=== PATIENT | female | born 1960 | race Two or more races ===

== ENCOUNTER 2023-09-20 13:48 | Outpatient (AMB) | payer OTHER, SELFPAY ==
--- NOTE | 2023-09-20 13:57 | HO.NEPHOV_ITS ---
HPI HPI Comments History of Present Illness Details I had the privilege of seeing Janell in follow-up of her chronic kidney disease. She does not have any dizziness anymore. Her blood pressure has been at goal. She denies any chest pain, shortness of breath, proximal nocturnal dyspnea, orthopnea, pedal edema or urinary symptoms. She is compliant with her medications. She does not take any excessive nonsteroidal anti- inflammatories. She has not had any hospitalizations or medication changes lately. She has history of microscopic hematuria intermittently. She feels well. [facility] Medical History (Updated 09/25/23 @ 11:31 by Jozef Nassar MD) Hypertension Chronic kidney disease, stage 3a Surgical History (Updated 09/20/23 @ 14:04 by Cate Barbosa MA) History of hysterectomy H/O section History of arthroscopic knee surgery Family History (Updated 09/20/23 @ 14:05 by Cate Barbosa MA) Sister Diabetes Social History (Updated 09/20/23 @ 14:05 by Cate Barbosa MA) Alcohol intake: never Patient Tobacco Use Status: Current everyday Tobacco user Vital Signs 09/20/23 13:59 Height 5 ft 1 in Weight 153 lb 2 oz BMI 28.9 BP 110/64 Blood Pressure Location Lt brachial Position Sitting Pulse 83 Pulse Source Pulse Oximeter Pulse Oximetry (%) 97 Oxygen Delivery Method Room Air Physical Exam Vital Signs: Last Vital Signs Pulse 83 09/20/23 13:59 BP 110/64 09/20/23 13:59 Pulse Ox 97 09/20/23 13:59 Oxygen Delivery Method Room Air 09/20/23 13:59 BMI result Body Mass Index 28.9 Const General: comfortable and no acute distress Orientation/consciousness: patient oriented x3 HEENT Head: Yes normocephalic Mouth: Normal oral and palatal mucosa present Eyes EOM: EOMs intact bilaterally Neck Neck: Yes supple Resp Auscultation: clear to auscultation bilaterally Cardio Jugular venous distension: no JVD Rate: regular rate GI Palpation (GI): Soft to palpation Auscultation: normal bowel sounds General: Yes no CVA tenderness Back/Spine/Pelvis Back: no CVA tenderness Skin General skin exam: no rashes or lesions noted Neuro General: patient oriented x3 and moves all extremities Extrem General: Yes no pedal edema Assessment & Plan Assessment & Plan (1) Hematuria: Code(s): R31.9 - Hematuria, unspecified Qualifiers: Hematuria type: unspecified type Qualified Code(s): R31.9 - Hematuria, unspecified (2) Chronic kidney disease, stage 3a: Code(s): N18.31 - Chronic kidney disease, stage 3a (3) Hypertension: Code(s): I10 - Essential (primary) hypertension Qualifiers: Hypertension type: primary hypertension Qualified Code(s): I10 - Essential (primary) hypertension Plan Her renal functions have been stable. I have ordered renal ultrasound as well as blood work and urine studies. I also referred her to see a urologist for getting a cystoscopy given her age. She had mild loss in GFR due to unknown etiology in the past. She never had proteinuria. She has no hearing deficit. She avoids nonsteroidal anti-inflammatories. She was encouraged to maintain good hydration. I did not make any other medication changes today. Follow-up appointment given. Answered all questions. Orders: Orders US renal BI 09/20/23 I10 - Essential (primary) hypertension, N18.31 - Chronic kidney disease, stage 3a, R31.9 - Hematuria, unspecified Blood Urea Nitrogen 09/20/23 I10 - Essential (primary) hypertension, N18.31 - C hronic kidney disease, stage 3a, R31.9 - Hematuria, unspecified Electrolytes 09/20/23 I10 - Essential (primary) hypertension, N18.31 - Chronic kidney disease, stage 3a, R31.9 - Hematuria, unspecified Calcium 09/20/23 I10 - Essential (primary) hypertension, N18.31 - Chronic kidney disease, stage 3a, R31.9 - Hematuria, unspecified Complement C4 09/20/23 I10 - Essential (primary) hypertension, N18.31 - Chronic kidney disease, stage 3a, R31.9 - Hematuria, unspecified Creatinine 09/20/23 I10 - Essential (primary) hypertension, N18.31 - Chronic kidney disease, stage 3a, R31.9 - Hematuria, unspecified Protein Creatinine Ratio, Ur 09/20/23 I10 - Essential (primary) hypertension, N18.31 - Chronic kidney disease, stage 3a, R31.9 - Hematuria, unspecified Complement C3 09/20/23 I10 - Essential (primary) hypertension, N18.31 - Chronic kidney disease, stage 3a, R31.9 - Hematuria, unspecified Referrals Urology Referral R31.9 - Hematuria, unspecified Coding Level of Care Code Est Pt Level 4 (26792) Diagnoses Hematuria, unspecified type R31.9 Hematuria type: unspecified type Chronic kidney disease, stage 3a N18.31 Primary hypertension I10 Hypertension type: primary hypertension Results Reviewed Nephrology Results: No Data to Display
[2023-09-20 13:59] VITALS: BP 110/64; PULSE 83; O2SAT 97; BMI 28.9
== END 2023-09-20 14:21 | disposition home or self-care (01) ==
PROVIDERS: PCP Internal Medicine; Visit Provider Internal Medicine Nephrology
DX: R31.9 Hematuria, unspecified (principal); N18.31 Chronic kidney disease, stage 3a; I10 Essential (primary) hypertension
CPT/HCPCS: 99214

== ENCOUNTER → 2023-09-20 13:48 | Outpatient (BNVA) | payer OTHER, SELFPAY | PROVIDERS: PCP Internal Medicine; Visit Provider Internal Medicine Nephrology | DX: I12.9 Hypertensive chronic kidney disease with stage 1 through stage 4 chronic kidney disease, or unspecified chronic kidney disease (principal); N18.31 Chronic kidney disease, stage 3a; R31.9 Hematuria, unspecified | CPT/HCPCS: 99212 ==

== ENCOUNTER 2023-10-03 12:12 | Outpatient (REF) | payer OTHER, SELFPAY ==
--- NOTE | ~2023-10-03 | US_ITS ---
EXAMINATION: US RETROPERITONEAL LIMITED (RENAL ONLY) CLINICAL INFORMATION: Hematuria. COMPARISON: None available. TECHNIQUE: Routine retroperitoneal imaging of kidneys is performed. FINDINGS: RIGHT KIDNEY: 8.1 x 3.3 x 4.8 cm (SAG x AP x TRV). The kidney is normal in size, contour, and echogenicity. Renal cortical thickness is normal. No calculi or focal parenchymal lesions. No hydronephrosis. LEFT KIDNEY: 8.9 x 4.6 x 4.0 cm (SAG x AP x TRV). The kidney is normal in size, contour, and echogenicity. Renal cortical thickness is normal. No calculi or focal parenchymal lesions. No hydronephrosis. US/US renal BI IMPRESSION: Unremarkable renal ultrasound.
== END 2023-10-03 12:13 | disposition home or self-care (01) ==
LOC: HO.US 12:12
PROVIDERS: PCP Internal Medicine; Visit Provider Internal Medicine Nephrology
DX: R31.9 Hematuria, unspecified (principal); I12.9 Hypertensive chronic kidney disease with stage 1 through stage 4 chronic kidney disease, or unspecified chronic kidney disease; N18.31 Chronic kidney disease, stage 3a
CPT/HCPCS: 76775

== ENCOUNTER 2023-11-09 13:47 | Outpatient (REF) | payer OTHER, SELFPAY ==
[2023-11-09 17:37] LABS: Urine Cytology See Pathology rpt
== END 2023-11-09 13:48 | disposition home or self-care (01) ==
LOC: HO.LNP 13:47
PROVIDERS: PCP Internal Medicine; Visit Provider Nurse Practitioner Family
DX: R31.29 Other microscopic hematuria (principal)
CPT/HCPCS: 81003; 88112; 99202

== ENCOUNTER 2023-11-09 13:47 | Outpatient (AMB) | payer OTHER, SELFPAY ==
--- NOTE | 2023-11-09 14:01 | A.OFFVIS_ITS ---
Intake Visit Reasons: gross hematuria/ possible cysto Intake Note: New Patient presents for initial visit for Gross Hematuria Urology Medications: none Blood Thinner: none Smoker: yes, since 14 years old Coffee Supervisor Required: No Accompanied by: Self / Same As Patient Allergies escitalopram [From Lexapro] Allergy (Verified 11/10/23 14:19) Unknown acetaminophen [From Percocet] Adverse Reaction (Verified 11/10/23 14:19) Vomiting hydrocodone [From Vicodin] Adverse Reaction (Verified 11/10/23 14:19) Vomiting oxycodone [From Percocet] Adverse Reaction (Verified 11/10/23 14:19) Vomiting Medication List - Last Reconciled 11/10/23 by OSVALDO Marcano atorvastatin 20 mg PO DAILY bupropion HCl XL 300 mg PO DAILY clonidine HCl mg PO BID docusate sodium 100 mg PO BID nicotine 1 patch topical DAILY omeprazole 20 mg PO DAILY plecanatide (Trulance) 3 mg PO DAILY quetiapine mg PO quetiapine 400 mg PO BEDTIME tramadol 50 mg PO BID PRN HPI Comments Details: Janell is a very pleasant 63-year-old female patient of Dr. Junior. She has a past medical history of hypertension and chronic kidney disease. She presents to the office today as a new patient for microscopic hematuria. In discussion with the patient today she reports having followed up with Nephrology at which time recommendations were made for urology referral due to ongoing microscopic hematuria in the setting of nicotine dependence. Patient reports a smoking history of approximately 50 years. She reports smoking approximately 1 pack of cigarettes per day however has recently decreased over the last few months to 7-10 cigarettes daily. She otherwise denies any bothersome urinary issues or concerns. Discussed at length potential causes of microscopic hematuria. Discussed reasons for blood in the urine may include but are not limited to kidney stones, cancer in the urinary tract, kidney stone disease or inflammatory conditions of the urinary tract. I have discussed workup to include cystoscopy evaluation. In office urinalysis results reviewed with the patient today. When asked she denies urinary urgency, urinary frequency, incontinence, nocturia, hematuria, dysuria, changes to urinary stream, flank pain, fever, and or chills. She does report noting foul-smelling urine at times however relates this to her decreased consumption of water or fluids. [facility] Medical History Hypertension Chronic kidney disease, stage 3a Surgical History History of hysterectomy H/O section History of arthroscopic knee surgery Family History Sister Diabetes Social History Alcohol intake: never Patient Tobacco Use Status: Current everyday Tobacco user Review of Systems Const Reports no additional complaints Eyes Reports no additional complaints ENT Reports no additional complaints Card Reports as per HPI Resp Reports no additional complaints GI Reports no additional complaints Reports as per HPI Musc Reports no additional complaints Neuro Reports no additional complaints Psych Reports no additional complaints Endo Reports no additional complaints Iam/Lymph Reports no additional complaints Aller/Immun Reports no additional complaints Physical Exam Const General: cooperative, comfortable, no acute distress, well developed, alert and awake Orientation/consciousness: patient oriented x3 HEENT Head: Yes normal to inspection, Yes normocephalic and Yes atraumatic Ears: hearing grossly normal bilaterally Eyes General: appearance normal, both eyes and all related structures Neck Neck: Yes normal visual inspection and Yes trachea midline Chest Chest palpation & inspection: normal inspection of the chest Resp Effort & Inspection: normal respiratory effort and able to speak in complete sentences Cardio Rate: regular rate GI Inspection: Yes normal to inspection General: Yes no CVA tenderness Back/Spine/Pelvis Back: no CVA tenderness Skin General skin exam: no rashes or lesions noted Neuro General: patient oriented x3 Extrem General: Yes normal to inspection Psych Appearance: grossly normal and well kempt Mental Status: mental status grossly normal Speech and movement: Normal speech and movement present and Clear speech present Affect: normal affect Attitude: cooperative Thought process: Normal thought process present Thought content: Normal thought content present Insight: Fair insight present (Psych) Judgement: Fair judgement present (Psych) Results AMB Urinalysis, Automated UA Leukoctes 0 Ana/uL Last Edit by Heriberto An on 11/09/23 14:36 UA Nitrite Negative Last Edit by Heriberto An on 11/09/23 14:36 UA Urobilinogen 0.2 mg/dL Last Edit by Heriberto An on 11/09/23 14:36 UA Protein 15 mg/dL Last Edit by Heriberto An on 11/09/23 14:36 UA pH 6.0 Last Edit by Heriberto An on 11/09/23 14:36 UA Blood 25 Bobby/uL Last Edit by Heriberto An on 11/09/23 14:36 UA Specific [place] 1.020 Last Edit by Heriberto An on 11/09/23 14:36 UA Ketone Negative Last Edit by Heriberto An on 11/09/23 14:36 UA Bilirubin 0 mg/dL Last Edit by Heriberto An on 11/09/23 14:36 UA Glucose 0 mg/dL Last Edit by Heriberto An on 11/09/23 14:36 Results Reviewed Results Reviewed: Laboratory Last Values Urine pH (Auto) 6.0 11/09/23 14:04 Specific [place] (Auto) 1.020 11/09/23 14:04 Urine Protein (Auto) 15 mg/dL 11/09/23 14:04 Glucose (UA)(Auto) 0 mg/dL 11/09/23 14:04 Urine Ketones (Auto) Negative 11/09/23 14:04 Urine Blood (Auto) 25 Bobby/uL 11/09/23 14:04 Urine Nitrite (Auto) Negative 11/09/23 14:04 Urine Bilirubin (Auto) 0 mg/dL 11/09/23 14:04 Urine Urobilinogen (Auto) 0.2 mg/dL 11/09/23 14:04 Leukocyte Esterase (Auto) 0 Ana/uL 11/09/23 14:04 Assessment & Plan Assessment & Plan (1) Microscopic hematuria: Code(s): R31.29 - Other microscopic hematuria Category: Medical (2) Foul smelling urine: Code(s): R82.90 - Unspecified abnormal findings in urine Category: Medical (3) Nicotine dependence: Code(s): F17.200 - Nicotine dependence, unspecified, uncomplicated Category: Medical Plan In office urinalysis results reviewed with the patient today; as noted above; will send for urine cytology Discussed at length potential causes of microscopic hematuria. Discussed further treatment options with surveillance monitoring verses further workup to include CT urogram, urine cytology, and in office cystoscopy; risks and benefits of these treatment options were discussed. Will obtain CT urogram for further assessment evaluation. BUN and creatinine ordered for imaging. Discussed, educated, and stressed the importance of limiting/quitting nicotine dependence for overall health and well-being. Discussed, educated, and stressed the importance of drinking water daily. Patient reports be happy with current voiding parameters. Follow-up in office cystoscopy with imaging and labs to be completed prior; or sooner with any issues, concerns, and or questions. Orders: Orders Urine Cytology 11/09/23 R31.29 - Other microscopic hematuria AMB Urinalysis Automated 11/09/23 Z13.9 - Encounter for screening, unspecified Blood Urea Nitrogen 11/09/23 R31.29 - Other microscopic hematuria Creatinine 11/09/23 R31.29 - Other microscopic hematuria CT urogram 11/09/23 F17.200 - Nicotine dependence, unspecified, uncomplicated, R31.29 - Other microscopic hematuria Patient Instructions: The patient had an opportunity to ask questions regarding the treatment plan. A ll questions were answered. Physical exam, labs, and imaging were discussed and reviewed in detail. As well as risks, benefits, and discussion of treatment choices. No major barriers to understanding were identified. The patient expressed understanding and agreement with the above treatment plan. The patient was made aware they should contact our office by phone for worsening of their current condition, the appearance of new symptoms, or with any questions or concerns. Compliance is encouraged with any medications and follow up testing that is ordered. It is a privilege to be allowed the opportunity to participate in? your urological care.? Again, if you have any questions or concerns If you have any questions or concerns please do not hesitate to contact me. The office is [phone]. This note is constructed using voice recognition software. While every effort has been made to ensure accuracy enrollment manager errors may have been included. Yours sincerely, OSVALDO Marcano
== END 2023-11-09 14:44 | disposition home or self-care (01) ==
PROVIDERS: PCP Internal Medicine; Visit Provider Nurse Practitioner Family
DX: R31.29 Other microscopic hematuria (principal); R82.90 Unspecified abnormal findings in urine; F17.200 Nicotine dependence, unspecified, uncomplicated
CPT/HCPCS: 99203

== ENCOUNTER 2024-01-15 12:05 | Outpatient (REF) | payer OTHER, SELFPAY ==
[2024-01-15 18:30] LABS: Anion Gap 10 (12-20); Blood Urea Nitrogen 11 mg/dL (9-16); Calcium 9.5 mg/dL (8.4-10.2); Carbon Dioxide 27 mmol/L (22-29); Chloride 109 mmol/L (96-108); Estimated Glomerular Filt Rate 43; Potassium 4.2 mmol/L (3.3-5.1); Sodium 142 mmol/L (135-145)
[2024-01-15 18:49] LABS: Creatinine Urine 93.34 mg/dL; Total Protein Urine Random < 7 mg/dL (<12)
[2024-01-17 10:08] LABS: Complement C3 124 mg/dL (83-193)
== END 2024-01-15 12:06 | disposition home or self-care (01) ==
LOC: HO.HKASLDS 12:05
PROVIDERS: Visit Provider Internal Medicine Nephrology
DX: N18.31 Chronic kidney disease, stage 3a (principal); I10 Essential (primary) hypertension; R31.9 Hematuria, unspecified
CPT/HCPCS: 36415; 80051; 82310; 82565; 82570; 84156; 84520; 86160

== ENCOUNTER 2024-02-14 14:03 | Outpatient (AMB) | payer OTHER, SELFPAY ==
--- NOTE | 2024-02-14 14:27 | HO.NEPHOV_ITS ---
Vital Signs 02/14/24 14:28 Height 5 ft 1 in Weight 144 lb 2 oz BMI 27.2 BP 120/74 Blood Pressure Location Lt brachial Position Sitting Pulse 87 Pulse Source Pulse Oximeter Pulse Oximetry (%) 97 Oxygen Delivery Method Room Air Intake Visit Reasons: R/S 01/17/24/ Conf Cat And Dog Bather Required: No Accompanied by: Self / Same As Patient Allergies escitalopram [From Lexapro] Allergy (Verified 02/14/24 14:30) Unknown acetaminophen [From Percocet] Adverse Reaction (Verified 02/14/24 14:30) Vomiting hydrocodone [From Vicodin] Adverse Reaction (Verified 02/14/24 14:30) Vomiting oxycodone [From Percocet] Adverse Reaction (Verified 02/14/24 14:30) Vomiting HPI Comments Details: I had the privilege of seeing Janell in follow-up of her chronic kidney disease. She does not have any dizziness anymore while on Meclizine. Her blood pressure has been at goal. She denies any chest pain, shortness of breath, proximal nocturnal dyspnea, orthopnea, pedal edema or urinary symptoms. She is compliant with her medications. She does not take any excessive nonsteroidal anti-inflammatories. She has not had any hospitalizations or medication changes lately. She has history of microscopic hematuria intermittently. She feels well. [facility] Medical History Hypertension Chronic kidney disease, stage 3a Surgical History History of hysterectomy H/O section History of arthroscopic knee surgery Family History Sister Diabetes Social History Alcohol intake: never Patient Tobacco Use Status: Current everyday Tobacco user Physical Exam Vital Signs: Last Vital Signs Pulse 87 02/14/24 14:28 BP 120/74 02/14/24 14:28 Pulse Ox 97 02/14/24 14:28 Oxygen Delivery Method Room Air 02/14/24 14:28 BMI result Body Mass Index 27.2 Const General: comfortable and no acute distress Orientation/consciousness: patient oriented x3 HEENT Head: Yes normocephalic Mouth: Normal oral and palatal mucosa present Eyes EOM: EOMs intact bilaterally Neck Neck: Yes supple Resp Auscultation: clear to auscultation bilaterally Cardio Jugular venous distension: no JVD Rate: regular rate GI Palpation (GI): Soft to palpation Auscultation: normal bowel sounds General: Yes no CVA tenderness Back/Spine/Pelvis Back: no CVA tenderness Skin General skin exam: no rashes or lesions noted Neuro General: patient oriented x3 and moves all extremities Extrem General: Yes no pedal edema Results Reviewed Nephrology Results: Sodium 142 mmol/L (135-145) 01/15/24 Potassium 4.2 mmol/L (3.3-5.1) 01/15/24 Chloride 109 mmol/L (96-108) H 01/15/24 Carbon Dioxide 27 mmol/L (22-29) 01/15/24 BUN 11 mg/dL (9-16) 01/15/24 Creatinine 1.25 mg/dL (0.5-1.4) 01/15/24 Calcium 9.5 mg/dL (8.4-10.2) 01/15/24 Urine Creatinine 93.34 mg/dL 01/15/24 Protein/Creatinin Ratio TNP 01/15/24 Renal US 10/03/23 Assessment & Plan Assessment & Plan (1) Chronic kidney disease, stage 3a: Code(s): N18.31 - Chronic kidney disease, stage 3a Category: Medical (2) Hematuria: Code(s): R31.9 - Hematuria, unspecified Category: Medical Qualifiers: Hematuria type: unspecified type Qualified Code(s): R31.9 - Hematuria, unspecified Plan Her renal functions have been stable. His renal ultrasound was unremarkable. urine studies did not have any protein. She had mild loss in GFR due to unknown etiology in the past. She has no hearing deficit. She may be a candidate for low dose ACEI / Jardiance in the future. She avoids nonsteroidal anti- inflammatories. She was encouraged to maintain good hydration. I did not make any other medication changes today. Follow-up appointment given. Answered all questions. Orders: Orders Creatinine Today N18.31 - Chronic kidney disease, stage 3a, R31.9 - Hematuria, unspecified Blood Urea Nitrogen Today N18.31 - Chronic kidney disease, stage 3a, R31.9 - Hematuria, unspecified Electrolytes Today N18.31 - Chronic kidney disease, stage 3a, R31.9 - Hematuria, unspecified Calcium Today N18.31 - Chronic kidney disease, stage 3a, R31.9 - Hematuria, unspecified Protein Creatinine Ratio, Ur Today N18.31 - Chronic kidney disease, stage 3a, R31.9 - Hematuria, unspecified Coding Level of Care Code Est Pt Level 4 (23597) Diagnoses Chronic kidney disease, stage 3a N18.31 Hematuria, unspecified type R31.9 Hematuria type: unspecified type
[2024-02-14 14:28] VITALS: BP 120/74; PULSE 87; O2SAT 97; BMI 27.2
== END 2024-02-14 14:50 | disposition home or self-care (01) ==
PROVIDERS: PCP Internal Medicine; Visit Provider Internal Medicine Nephrology
DX: N18.31 Chronic kidney disease, stage 3a (principal); R31.9 Hematuria, unspecified
CPT/HCPCS: 99214

== ENCOUNTER → 2024-02-14 14:03 | Outpatient (BNVA) | payer OTHER, SELFPAY | PROVIDERS: PCP Internal Medicine; Visit Provider Internal Medicine Nephrology | DX: I12.9 Hypertensive chronic kidney disease with stage 1 through stage 4 chronic kidney disease, or unspecified chronic kidney disease (principal); N18.31 Chronic kidney disease, stage 3a; R31.9 Hematuria, unspecified | CPT/HCPCS: 99212 ==

== ENCOUNTER 2024-08-26 12:50 | Outpatient (REF) | payer OTHER, SELFPAY ==
[2024-08-26 18:26] LABS: Anion Gap 13 (12-20); Blood Urea Nitrogen 14 mg/dL (9-16); Calcium 8.9 mg/dL (8.4-10.2); Carbon Dioxide 27 mmol/L (22-29); Chloride 107 mmol/L (96-108); Estimated Glomerular Filt Rate 45; Potassium 4.1 mmol/L (3.3-5.1); Sodium 143 mmol/L (135-145)
[2024-08-26 18:34] LABS: Creatinine Urine 59.66 mg/dL; Total Protein Urine Random < 7 mg/dL (<12)
== END 2024-08-26 12:51 | disposition home or self-care (01) ==
LOC: HO.HKASLDS 12:50
PROVIDERS: Visit Provider Internal Medicine Nephrology
DX: N18.31 Chronic kidney disease, stage 3a (principal); R31.9 Hematuria, unspecified
CPT/HCPCS: 36415; 80051; 82310; 82565; 82570; 84156; 84520

== ENCOUNTER 2024-09-02 09:52 | Outpatient (AMB) | payer OTHER, SELFPAY ==
[2024-09-02 10:33] VITALS: BP 130/72; PULSE 78; O2SAT 97; BMI 27.5
--- NOTE | 2024-09-02 10:33 | HO.NEPHOV_ITS ---
Vital Signs 09/02/24 10:33 Height 5 ft 1 in Weight 145 lb 8 oz BMI 27.5 BP 130/72 Blood Pressure Location Lt brachial Position Sitting Pulse 78 Pulse Source Pulse Oximeter Pulse Oximetry (%) 97 Oxygen Delivery Method Room Air Intake Visit Reasons: 6 mon follow up/ Conf Type Casting Machine Operator Required: No Accompanied by: Self / Same As Patient Allergies escitalopram [From Lexapro] Allergy (Verified 09/02/24 10:33) Unknown acetaminophen [From Percocet] Adverse Reaction (Verified 09/02/24 10:33) Vomiting hydrocodone [From Vicodin] Adverse Reaction (Verified 09/02/24 10:33) Vomiting oxycodone [From Percocet] Adverse Reaction (Verified 09/02/24 10:) Vomiting HPI Comments Details: I had the privilege of seeing Janell in follow-up of her chronic kidney disease. Her blood pressure has been at goal. She denies any chest pain, shortness of breath, proximal nocturnal dyspnea, orthopnea, pedal edema or urinary symptoms. She is compliant with her medications. She does not take any excessive nonsteroidal anti-inflammatories. She has not had any hospitalizations or medication changes lately. She has history of microscopic hematuria intermittently. She feels well. [facility] Medical History Hypertension Chronic kidney disease, stage 3a Surgical History History of hysterectomy H/O section History of arthroscopic knee surgery Family History Sister Diabetes Social History Alcohol intake: never Patient Tobacco Use Status: Current everyday Tobacco user Review of Systems Const All systems reviewed & are unremarkable except as noted in HPI and below Physical Exam Vital Signs: Last Vital Signs Pulse 78 09/02/24 10:33 BP 130/72 09/02/24 10:33 Pulse Ox 97 09/02/24 10:33 Oxygen Delivery Method Room Air 09/02/24 10:33 BMI result Body Mass Index 27.5 Const General: comfortable and no acute distress Orientation/consciousness: patient oriented x3 HEENT Head: Yes normocephalic Mouth: Normal oral and palatal mucosa present Eyes EOM: EOMs intact bilaterally Neck Neck: Yes supple Resp Auscultation: clear to auscultation bilaterally Cardio Jugular venous distension: no JVD Rate: regular rate GI Palpation (GI): Soft to palpation Auscultation: normal bowel sounds General: Yes no CVA tenderness Back/Spine/Pelvis Back: no CVA tenderness Skin General skin exam: no rashes or lesions noted Neuro General: patient oriented x3 and moves all extremities Extrem General: Yes no pedal edema Results Reviewed Nephrology Results: Sodium 143 mmol/L (135-145) 08/26/24 Potassium 4.1 mmol/L (3.3-5.1) 08/26/24 Chloride 107 mmol/L (96-108) 08/26/24 Carbon Dioxide 27 mmol/L (22-29) 08/26/24 BUN 14 mg/dL (9-16) 08/26/24 Creatinine 1.20 mg/dL (0.5-1.4) 08/26/24 Calcium 8.9 mg/dL (8.4-10.2) 08/26/24 Urine Creatinine 59.66 mg/dL 08/26/24 Protein/Creatinin Ratio TNP 08/26/24 Renal US 10/03/23 Assessment & Plan Assessment & Plan (1) Microscopic hematuria: Code(s): R31.29 - Other microscopic hematuria Category: Medical (2) Chronic kidney disease, stage 3a: Code(s): N18.31 - Chronic kidney disease, stage 3a Category: Medical (3) Hypertension: Code(s): I10 - Essential (primary) hypertension Category: Medical Qualifiers: Hypertension type: primary hypertension Qualified Code(s): I10 - Essential (primary) hypertension Plan Her renal functions have been stable. Her renal ultrasound was unremarkable. urine studies did not have any protein. She had mild loss in GFR due to unknown etiology in the past. She has no hearing deficit. She may be a candidate for low dose ACEI / Jardiance in the future. She avoids nonsteroidal anti- inflammatories. She was encouraged to maintain good hydration. I did not make any other medication changes today. Follow-up appointment given. Answered all questions. Orders: Orders Blood Urea Nitrogen 6 Months I10 - Essential (primary) hypertension, N18.31 - Chronic kidney disease, stage 3a, R31.29 - Other microscopic hematuria Electrolytes 6 Months I10 - Essential (primary) hypertension, N18.31 - Chronic kidney disease, stage 3a, R31.29 - Other microscopic hematuria UA and rflx microscopic 6 Months I10 - Essential (primary) hypertension, N18.31 - Chronic kidney disease, stage 3a, R31.29 - Other microscopic hematuria Creatinine 6 Months I10 - Essential (primary) hypertension, N18.31 - Chronic kidney disease, stage 3a, R31.29 - Other microscopic hematuria Coding Level of Care Code Est Pt Level 4 (60430) Diagnoses Microscopic hematuria R31.29 Chronic kidney disease, stage 3a N18.31 Primary hypertension I10 Hypertension type: primary hypertension
== END 2024-09-03 08:53 | disposition home or self-care (01) ==
PROVIDERS: PCP Internal Medicine; Visit Provider Internal Medicine Nephrology
DX: R31.29 Other microscopic hematuria (principal); N18.31 Chronic kidney disease, stage 3a; I10 Essential (primary) hypertension
CPT/HCPCS: 99214

== ENCOUNTER → 2024-09-02 09:52 | Outpatient (BNVA) | payer OTHER, SELFPAY | PROVIDERS: PCP Internal Medicine; Visit Provider Internal Medicine Nephrology | DX: I12.9 Hypertensive chronic kidney disease with stage 1 through stage 4 chronic kidney disease, or unspecified chronic kidney disease (principal); N18.31 Chronic kidney disease, stage 3a; R31.29 Other microscopic hematuria | CPT/HCPCS: 99212 ==

== ENCOUNTER 2025-03-24 15:23 | Outpatient (AMB) | payer OTHER, SELFPAY ==
--- NOTE | 2025-03-24 15:30 | HO.NEPHOV_ITS ---
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 Her blood pressure has been at goal. She denies any chest pain, shortness of breath, proximal nocturnal dyspnea, orthopnea, pedal edema or urinary symptoms. She is compliant with her medications. She does not take any excessive nonsteroidal anti-inflammatories. She has not had any hospitalizations or medication changes lately. She has history of microscopic hematuria intermittently. She feels well [facility] Medical History Hypertension Chronic kidney disease, stage 3a Surgical History History of hysterectomy H/O section History of arthroscopic knee surgery Family History Sister Diabetes Social History Alcohol intake: never Patient Tobacco Use Status: Current everyday Tobacco user Review of Systems Const All systems reviewed & are unremarkable except as noted in HPI and below Physical Exam Const General: comfortable and no acute distress Orientation/consciousness: patient oriented x3 HEENT Head: Yes normocephalic Mouth: Normal oral and palatal mucosa present Eyes EOM: EOMs intact bilaterally Neck Neck: Yes supple Resp Auscultation: clear to auscultation bilaterally Cardio Jugular venous distension: no JVD Rate: regular rate GI Palpation (GI): Soft to palpation Auscultation: normal bowel sounds General: Yes no CVA tenderness Back/Spine/Pelvis Back: no CVA tenderness Skin General skin exam: no rashes or lesions noted Neuro General: patient oriented x3 and moves all extremities Extrem General: Yes no pedal edema Results Reviewed Nephrology Results: Sodium, (135-145) 143 mmol/L 08/26/24 Potassium, (3.3-5.1) 4.1 mmol/L 08/26/24 Chloride, (96-108) 107 mmol/L 08/26/24 Carbon Dioxide, (22-29) 27 mmol/L 08/26/24 BUN, (9-16) 14 mg/dL 08/26/24 Creatinine, (0.5-1.4) 1.20 mg/dL 08/26/24 Calcium, (8.4-10.2) 8.9 mg/dL Δ 08/26/24 Urine Creatinine 59.66 mg/dL 08/26/24 Protein/Creatinin Ratio TNP 08/26/24 Renal US 10/03/23 Assessment & Plan Assessment & Plan (1) Hypertension: Code(s): I10 - Essential (primary) hypertension Category: Medical Qualifiers: Hypertension type: primary hypertension Qualified Code(s): I10 - Essential (primary) hypertension (2) Chronic kidney disease, stage 3a: Code(s): N18.31 - Chronic kidney disease, stage 3a Category: Medical (3) Microscopic hematuria: Code(s): R31.29 - Other microscopic hematuria Category: Medical Plan Her renal functions have been stable. Her renal ultrasound was unremarkable. urine studies did not have any protein. She had mild loss in GFR due to unknown etiology in the past. She has no hearing deficit. She may be a candidate for low dose ACEI / Jardiance in the future. She avoids nonsteroidal anti- inflammatories. She was encouraged to maintain good hydration. I did not make any other medication changes today. Follow-up appointment given. Answered all questions. Orders: Orders Blood Urea Nitrogen 3 Months I10 - Essential (primary) hypertension, N18.31 - Chronic kidney disease, stage 3a, R31.29 - Other microscopic hematuria Creatinine 3 Months I10 - Essential (primary) hypertension, N18.31 - Chronic kidney disease, stage 3a, R31.29 - Other microscopic hematuria Electrolytes 3 Months I10 - Essential (primary) hypertension, N18.31 - Chronic kidney disease, stage 3a, R31.29 - Other microscopic hematuria Coding Level of Care Code Est Pt Level 4 (72274) Diagnoses Primary hypertension I10 Hypertension type: primary hypertension Chronic kidney disease, stage 3a N18.31 Microscopic hematuria R31.29
[2025-03-24 15:34] VITALS: BP 90/56; PULSE 70; O2SAT 98; BMI 26.1
--- OUTSIDE RECORDS SUMMARY | 2025-03-24 16:28 | XMS_ITS | Clinical Summary ---
Author Organization [facility] Address [address] [place] [phone] Phone Care Team Providers Care Adjustment Examiner Name Role Phone Physician, Pcp Unknown Primary Care Provider Janine vailable Allergies Active Allergy Reactions Criticality Noted Date Comments Oxycodone Nausea And Vomiting 01/24/2025 Hydrocodone-Acetaminophen Nausea And Vomiting 0 01/02/2025 Medications No known medications Active Problems No known active problems Encounters Date Type Department Care Team Description 01/24/2025 11:23 AM EDT - 01/24/2025 12:41 PM EDT Emergency [facility] Emergency [address] [place] [phone] Pain of right thumb (Primary Dx) Discharge Disposition: Home or Self Care 01/02/2025 1:49 PM EDT - 01/02/2025 3:01 PM EDT Emergency [facility] Emergency [address] [place] [phone] Pain (Primary Dx); Muscle strain of right thigh, initial encounter Discharge Disposition: Home or Self Care from Last 3 Months Surgical History Surgery Date Site/Laterality Comments OTHER SURGICAL HISTORY PROCEDURE: [place] TOTAL ABDOMINAL HYSTERECT W/WO RMVL TUBE OVARY KNEE ARTHROPLASTY PROCEDURE: [place] ARTHRS KNEE ABRASION ARTHRP/CLERICAL STOCK INSPECTOR DRLG/MICROFX; COMMENT: right Medical History Medical History Date Comments Hyperlipidemia 12/06/2016 DX:Hyperlipidemi a Family History Relation Name Status Comments Brother Alive Father Mother Alive Sister Alive Social History Tobacco Use Types Packs/Day Years Used Date Smoking Tobacco: Every Day Smokeless Tobacco: Never Alcohol Use Standard Drinks/Week Comments No 0 (1 standard drink = 0.6 oz pur e alcohol) Comments No Sex and Gender Information Value Date Recorded Sex Assigned at Not on file Legal Sex Female 6:14 AM EST Gender Identity Not on file Sexual Orientation Not on file Obstetrics History Last Filed Vital Signs Vital Sign Reading Time Taken Comments Blood Pressure 89/60 01/24/2025 10:25 AM EDT Pulse 88 01/24/2025 10:25 AM EDT Temperature 36.6 C (97.9 F) 01/24/2025 10:25 AM EDT Respiratory Rate 16 01/24/2025 10:25 AM EDT Oxygen Saturation 99% 01/24/2025 10:29 AM EDT Inhaled Oxygen Concentration - - Weight 62.6 kg (138 lb) 01/24/2025 10:25 AM EDT Height 154.9 cm (5' 1 ) 01/24/2025 10:25 AM EDT Body Mass Index 26.07 01/24/2025 10:25 AM EDT Plan of Treatment Health Maintenance Due Date Last Done Comments Breast Cancer Screening 1960 Pneumococcal Vaccine: 50+ Years (1 of 2 - PCV) 1977 Zoster Vaccines (1 of 2) 2008 Hepatitis B Vaccines (3 of 3 - 19+ 3-dose series) 09/26/2016 04/28/2016, 03/29/2016 Cholesterol Screening (Lipid Panel) 06/25/2022 Colorectal Cancer Screening: Colonoscopy 06/25/2022 Hepatitis C Screening 06/25/2022 Medicare Annual Wellness Visit 06/25/2022 Osteoporosis Screening (Bone Density Screening) 06/25/2022 Social Influencers of Health Screening 06/25/2022 Falls Risk Assessment 2023 Depression Screening 07/23/2024 Hypertension/CHF/CAD Annual BMP Blood Test 01/02/2025 COVID-19 Vaccine (3 - 2024-2 6 season) 2025 12/17/2020, 11/26/2020 Influenza Vaccine (#1) 2025 08/02/2018 DTaP,Tdap,and Td Vaccines (3 - Td or Tdap) 04/04/2026 04/04/2016, 07/23/2003 RSV Immunization Adult Patients (1 - 1-dose 75+ series) 2033 HIB Vaccines Aged Out No longer eligi ble based on patient's age to complete this topic HPV Vaccines Aged Out No longer eligi ble based on patient's age to complete this topic Hepatitis A Vaccines Aged Out No long er eligible based on patient's age to complete this topic IPV Vaccines Aged Out No longer eligi ble based on patient's age to complete this topic MMR Vaccines Aged Out No longer eligi ble based on patient's age to complete this topic Meningococcal ACWY Vaccine Aged Out N o longer eligible based on patient's age to complete this topic Meningococcal B Vaccine Aged Out No l onger eligible based on patient's age to complete this topic RSV Immunization Patients Under 20 months Aged Out No longer eligible b ased on patient's age to complete this topic Varicella Vaccines Aged Out No longer eligible based on patient's age to complete this topic Procedures Procedure Name Priority Date/Time Associated Diagnosis Comments XR FINGERS 2+ VIEWS RIGHT STAT 01/24/2025 10:55 AM EDT VAS US DUPLEX LOWER EXT VENOUS RIGHT STAT 01/02/2025 2:25 PM EDT Pain from Last 3 Months Results * XR Fingers 2+ Views Right (01/24/2025 10:55 AM EDT) Anatomical Region Laterality Modality Upper Extremities, Fingers Right Radio graphic Imaging 01/24/2025 11:1 4 AM EDT Impressions 01/24/2025 11:14 AM EDT FINDINGS/IMPRESSION: Soft tissue swelling of the 1st digit. Mild degenerative changes and osteopenia. No acute fracture. Normal alignment. -------- FINAL REPORT -------- Dictated By: Rogelio Connolly Dictated Date: 01/24/2025 11:14 ET Assigned Physician: Rogelio Connolly Reviewed and Electronically Signed By: Rogelio Connolly Signed Date: 01/24/2025 11:14 ET Workstation ID: [id number] Transcribed By: Self Edit Transcribed Date: 01/24/2025 11:14 ET Narrative 01/24/2025 11:14 AM EDT XR FINGERS 2+ VIEWS RIGHT INDICATION: pain swelling right thumb TECHNIQUE: XR FINGERS 2+ VIEWS RIGHT COMPARISON: No priors available. Procedure Note Rogelio Connolly MD - 01/24/2025 XR FINGERS 2+ VIEWS RIGHT INDICATION: pain swelling right thumb TECHNIQUE: XR FINGERS 2+ VIEWS RIGHT COMPARISON: No priors available. IMPRESSION: FINDINGS/IMPRESSION: Soft tissue swelling of the 1st digit. Milddegenerative changes and osteopenia. No acute fracture. Normalalignment. -------- FINAL REPORT -------- Dictated By: Rogelio Connolly Dictated Date: 01/24/2025 11:14 ET Assigned Physician: Rogelio Connolly Reviewed and Electronically Signed By: Rogelio Connolly Signed Date: 01/24/2025 11:14 ET Workstation ID: [id number] Transcribed By: Self Edit Transcribed Date: 01/24/2025 11:14 ET us Emeterio Wilson DO IMG XR PROCEDURES Final Result * Vascular US Duplex Lower Extremity Venous Right (01/02/2025 2:25 PM EDT) Anatomical Region Laterality Modality Vascular, Abdomen Ultrasound 01/02/2025 2:28 PM EDT Impressions 01/02/2025 2:28 PM EDT NO RIGHT LOWER EXTREMITY DEEP VENOUS THROMBOSIS. -------- FINAL REPORT -------- Dictated By: Rogelio Connolly Dictated Date: 01/02/2025 14:28 ET Assigned Physician: Rogelio Connolly Reviewed and Electronically Signed By: Rogelio Connolly Signed Date: 01/02/2025 14:28 ET Workstation ID: [id number] Transcribed By: Self Edit Transcribed Date: 01/02/2025 14:28 ET Narrative 01/02/2025 2:28 PM EDT Ultrasound duplex right lower extremity. INDICATION: pain in extremities TECHNIQUE: 2-D and color Doppler imaging of the right lower extremity venous vasculature with compression and augmentation maneuvers. COMPARISON: No priors available. FINDINGS: There is normal flow, compression, and augmentation from the common femoral through the popliteal vein. No fluid collection. Procedure Note Rogelio Connolly MD - 01/02/2025 Ultrasound duplex right lower extremity. INDICATION: pain in extremities TECHNIQUE: 2-D and color Doppler imaging of the right lower extremityvenous vasculature with compression and augmentation maneuvers. COMPARISON: No priors available. FINDINGS: There is normal flow, compression, and augmentation from the commonfemoral through the popliteal vein. No fluid collection. IMPRESSION: NO RIGHT LOWER EXTREMITY DEEP VENOUS THROMBOSIS. -------- FINAL REPORT -------- Dictated By: Rogelio Connolly Dictated Date: 01/02/2025 14:28 ET Assigned Physician: Rogelio Connolly Reviewed and Electronically Signed By: Rogelio Connolly Signed Date: 01/02/2025 14:28 ET Workstation ID: [id number] Transcribed By: Self Edit Transcribed Date: 01/02/2025 14:28 ET Everett Elinor Blanton MD CV VASCULAR PROCEDURES Final Re sult from Last [address] [place] [address] [address] Member Subscriber Plan / Payer (Ef fective 2023-Present) Name:IRON LAKHANI Relation to Subscriber:Self Name:Iron Lakhani Payer ID:[id number] Group ID:[id number] Type:Not on file Address: [address] [place] [address] [facility] MEDICARE Member Subscriber Plan / Payer (Ef fective 2023-Present) Name:Iron Lakhani S Relation to Subscriber:Self Name:Iron Lakhani Payer ID:[id number] Group ID:Not on file Type:Not on file Address: [address] [place] [address] [facility] MEDICARE Member Subscriber Plan / Payer (Ef fective 2023-Present) Name:Iron Lakhani S Relation to Subscriber:Self Name:Iron Lakhani Payer ID:[id number] Group ID:Not on file Type:Not on file Address: [address] [place] [address] Care Teams Adjustment Examiner Relationship Specialty Start Date End Date Physician, Pcp Unknown PCP - General 01/02/25
== END 2025-03-24 15:45 | disposition home or self-care (01) ==
LOC: HO.HKAS 15:23
PROVIDERS: PCP Internal Medicine; Visit Provider Internal Medicine Nephrology
DX: I10 Essential (primary) hypertension (principal); N18.31 Chronic kidney disease, stage 3a; R31.29 Other microscopic hematuria
CPT/HCPCS: 99214

== ENCOUNTER → 2025-03-24 15:23 | Outpatient (BNVA) | payer OTHER, SELFPAY | PROVIDERS: PCP Internal Medicine; Visit Provider Internal Medicine Nephrology | DX: I10 Essential (primary) hypertension (principal); N18.31 Chronic kidney disease, stage 3a; R31.29 Other microscopic hematuria | CPT/HCPCS: 99212 ==

== ENCOUNTER 2025-06-22 11:03 | Outpatient (REF) | payer MEDICARE, MEDICAID, SELFPAY ==
[2025-06-22 14:01] LABS: Anion Gap 11 (12-20); Blood Urea Nitrogen 18 mg/dL (9-16); Carbon Dioxide 25 mmol/L (22-29); Chloride 110 mmol/L (96-108); Estimated Glomerular Filt Rate 34; Potassium 4.2 mmol/L (3.3-5.1); Sodium 142 mmol/L (135-145)
--- OUTSIDE RECORDS SUMMARY | 2025-06-22 14:31 | XMS_ITS | Clinical Summary ---
Author Organization [facility] Address [address] [place] [address] Phone Care Team Providers Care Washer And Crusher Tender Name Role Phone Physician, Pcp Unknown Primary Care Provider Janine vailable Allergies Active Allergy Reactions Criticality Noted Date Comments Oxycodone Nausea And Vomiting 01/24/2025 Hydrocodone-Acetaminophen Nausea And Vomiting 0 01/02/2025 Medications No known medications Active Problems No known active problems Surgical History Surgery Date Site/Laterality Comments OTHER SURGICAL HISTORY PROCEDURE: [place] TOTAL ABDOMINAL HYSTERECT W/WO RMVL TUBE OVARY KNEE ARTHROPLASTY PROCEDURE: [place] ARTHRS KNEE ABRASION ARTHRP/PROJECT LEAD DRLG/MICROFX; COMMENT: right Medical History Medical History [...] Last Done Comments Breast Cancer Screening 1960 Colorectal Cancer Screening: Colonoscopy 1960 Pneumococcal Vaccine: 50+ Years (1 of 2 - PCV) 1977 Zoster Vaccines (1 of 2) 2008 Hepatitis B Vaccines (3 of 3 - 19+ 3-dose series) 09/26/2016 04/28/2016, 03/29/2016 Cholesterol Screening (Lipid Panel) 06/25/2022 Hepatitis C Screening 06/25/2022 Medicare Annual [...] on patient's age to complete this topic Insurance Member Subscriber Plan / Payer (Ef fective 2023-Present) Name:IRON MACHADO Relation to Subscriber:Self Name:Iron Machado Payer ID:[id number] Group ID:[id number] Type:Not on file Address: [address] [place] [address] [facility] MEDICARE Member Subscriber Plan / Payer ( fective 2023-Present) Name:Iron Machado Relation to Subscriber:Self Name:Iron Machado Payer ID:[id number] Group ID:Not on file Type:Not on file Address: [address] [place] [address] [facility] MEDICARE Member Subscriber Plan / Payer ( fective 2023-Present) Name:Iron Machado Relation to Subscriber:Self Name:Iron Machado Payer ID:[id number] Group ID:Not on file Type:Not on file Address: [address] [place] [address] Care Teams Washer And Crusher Tender Relationship Specialty Start Date End Date Physician, Pcp Unknown PCP - General 01/02/25
== END 2025-06-22 11:04 | disposition home or self-care (01) ==
LOC: HO.HKASLDS 11:03
PROVIDERS: PCP Internal Medicine; Visit Provider Internal Medicine Nephrology
DX: I12.9 Hypertensive chronic kidney disease with stage 1 through stage 4 chronic kidney disease, or unspecified chronic kidney disease (principal); N18.31 Chronic kidney disease, stage 3a; R31.29 Other microscopic hematuria
CPT/HCPCS: 36415; 80051; 82565; 84520

== ENCOUNTER 2025-06-23 14:38 | Outpatient (AMB) | payer OTHER, SELFPAY ==
--- NOTE | 2025-06-23 15:10 | HO.NEPHOV_ITS ---
Vital Signs 06/23/25 15:11 Height 5 ft 1 in Weight 143 lb 8 oz BMI 27.1 BP 102/70 Blood Pressure Location Lt brachial Position Sitting Pulse 82 Pulse Source Pulse Oximeter Pulse Oximetry (%) 97 Oxygen Delivery Method Room Air Intake Visit Reasons: 3mnth w labs- Conf Welder Gas Required: No Accompanied by: Self / Same As Patient Allergies escitalopram (From Lexapro) Allergy (Verified 06/23/25 15:11) Unknown acetaminophen (From Percocet) Adverse Reaction (Verified 06/23/25 15:11) Vomiting hydrocodone (From Vicodin) Adverse Reaction (Verified 06/23/25 15:11) Vomiting oxycodone (From Percocet) Adverse Reaction (Verified 06/23/25 15:11) Vomiting HPI Comments Details: I had the privilege of seeing Janell in follow-up of her chronic kidney disease. Her blood pressure has been low normal with rise in serum creatinine. She denies any chest pain, shortness of breath, proximal nocturnal dyspnea, orthopnea, pedal edema or urinary symptoms. She is compliant with her medications. She does not take any excessive nonsteroidal anti-inflammatories. She feels well otherwise [facility] Medical History Hypertension Chronic kidney disease, stage 3a Surgical History History of hysterectomy H/O section History of arthroscopic knee surgery Family History Sister Diabetes Social History Alcohol intake: never Patient Tobacco Use Status: Current everyday Tobacco user Review of Systems Const All systems reviewed & are unremarkable except as noted in HPI and below Physical Exam Vital Signs: Last Vital Signs Pulse 82 06/23/25 15:11 BP 102/70 06/23/25 15:11 Pulse Ox 97 06/23/25 15:11 Oxygen Delivery Method Room Air 06/23/25 15:11 BMI result Body Mass Index 27.1 Const General: comfortable and no acute distress Orientation/consciousness: patient oriented x3 HEENT Head: Yes normocephalic Mouth: Normal oral and palatal mucosa present Eyes EOM: EOMs intact bilaterally Neck Neck: Yes supple Resp Auscultation: clear to auscultation bilaterally Cardio Jugular venous distension: no JVD Rate: regular rate GI Palpation (GI): Soft to palpation Auscultation: normal bowel sounds General: Yes no CVA tenderness Back/Spine/Pelvis Back: no CVA tenderness Skin General skin exam: no rashes or lesions noted Neuro General: patient oriented x3 and moves all extremities Extrem General: Yes no pedal edema Results Reviewed Nephrology Results: Sodium, (135-145) 142 mmol/L 06/22/25 Potassium, (3.3-5.1) 4.2 mmol/L 06/22/25 Chloride, (96-108) 110 mmol/L H 06/22/25 Carbon Dioxide, (22-29) 25 mmol/L 06/22/25 BUN, (9-16) 18 mg/dL H 06/22/25 Creatinine, (0.5-1.4) 1.53 mg/dL H 06/22/25 Calcium, (8.4-10.2) 8.9 mg/dL Δ 08/26/24 Urine Creatinine 59.66 mg/dL 08/26/24 Protein/Creatinin Ratio TNP 08/26/24 Renal US 10/03/23 Assessment & Plan Assessment & Plan (1) Hypertension: Code(s): I10 - Essential (primary) hypertension Category: Medical Qualifiers: Hypertension type: primary hypertension Qualified Code(s): I10 - Essential (primary) hypertension (2) Chronic kidney disease, stage 3a: Code(s): N18.31 - Chronic kidney disease, stage 3a Category: Medical (3) GIN (acute kidney injury): Code(s): N17.9 - Acute kidney failure, unspecified Category: Medical Plan Her renal functions are marginally worse ( hemodynamic GIN) due to low BP ( clonidine by county administrator). I reduced her Clonidine to 0.1mg daily at night. Her renal ultrasound in the past was unremarkable. Her urine studies did not have any protein. She had mild loss in GFR due to unknown etiology in the past. She has no hearing deficit. She may be a candidate for low dose ACEI / Jardiance in the future once her GIN has resolved. She avoids nonsteroidal anti- inflammatories. She was encouraged to maintain good hydration. I did not make any other medication changes today. Follow-up appointment given. Answered all questions. Orders: Orders Blood Urea Nitrogen 6 Weeks N17.9 - Acute kidney failure, unspecified Creatinine 6 Weeks N17.9 - Acute kidney failure, unspecified Electrolytes 6 Weeks N17.9 - Acute kidney failure, unspecified Coding Level of Care Code Est Pt Level 4 (91672) Diagnoses Primary hypertension I10 Hypertension type: primary hypertension Chronic kidney disease, stage 3a N18.31 GIN (acute kidney injury) N17.9
[2025-06-23 15:11] VITALS: BP 102/70; PULSE 82; O2SAT 97; BMI 27.1
--- OUTSIDE RECORDS SUMMARY | 2025-06-23 16:34 | XMS_ITS | Clinical Summary ---
Author Organization [facility] Address [address] [place] [address] Phone Care Team Providers Care Project Development Manager Name Role Phone Physician, Pcp Unknown Primary [...] KNEE ARTHROPLASTY PROCEDURE: [place] ARTHRS KNEE ABRASION ARTHRP/COMMERCIAL LOAN MANAGER DRLG/MICROFX; COMMENT: right Medical History Medical History [...] file Address: [address] [place] [address] [facility] MEDIC[facility] Member Subscriber Plan / Payer ( fective 2023-Present) Name:Iron Machado Relation to Subscriber:Self Name:Iron Machado Payer ID:[id number] Group ID:Not on file Type:Not on file Address: [address] [place] [address] [facility] MEDICARE Member Subscriber Plan / Payer ( fective 2023-Present) Name:Iron Machado Relation to Subscriber:Self Name:Iron Machado Payer ID:[id number] Group ID:Not on file Type:Not on file Address: [address] [place] [address] Care Teams Project Development Manager Relationship Specialty Start Date End Date Physician, Pcp Unknown PCP - General 01/02/25
== END 2025-06-23 15:46 | disposition home or self-care (01) ==
LOC: HO.HKAS 14:39
PROVIDERS: PCP Internal Medicine; Visit Provider Internal Medicine Nephrology
DX: I10 Essential (primary) hypertension (principal); N18.31 Chronic kidney disease, stage 3a; N17.9 Acute kidney failure, unspecified
CPT/HCPCS: 99214

== ENCOUNTER → 2025-06-23 14:38 | Outpatient (BNVA) | payer MEDICARE, MEDICAID, SELFPAY | PROVIDERS: PCP Internal Medicine; Visit Provider Internal Medicine Nephrology | DX: I12.9 Hypertensive chronic kidney disease with stage 1 through stage 4 chronic kidney disease, or unspecified chronic kidney disease (principal); N18.31 Chronic kidney disease, stage 3a; N17.9 Acute kidney failure, unspecified; F17.210 Nicotine dependence, cigarettes, uncomplicated | CPT/HCPCS: 99212 ==